=== PATIENT | male | born 1945 | race Caucasian/White ===

== ENCOUNTER → 2017-07-24 | Outpatient (CLI) | payer MEDICARE, OTHER ==
[~2017-07-24] MED LIST: ASPI81TA94 PO; CHOL10005 PO; CYAN100071 SL; FEXO-67 PO; INSU100V24 SQ; LANI SUBQ; LEVO75TA73 PO; LISI-362 PO; LUTE20CA11 PO; METF-410 PO; MONT10TA PO; PROP80CA3; ROS10 PO
== END ==
LOC: LAB 14:29
PROVIDERS: ATTEND Otolaryngology
DX: A49.01 Methicillin susceptible Staphylococcus aureus infection, unspecified site (principal)
CPT/HCPCS: 87071; 87077; 87186

== ENCOUNTER → 2017-09-22 | Outpatient (CLI) | payer MEDICARE, OTHER ==
[~2017-09-22] MED LIST changes: +SULF-198 PO
== END ==
LOC: LAB 13:43
PROVIDERS: ATTEND Otolaryngology
DX: J30.9 Allergic rhinitis, unspecified (principal)
CPT/HCPCS: 36415; 86003